=== PATIENT | male | born 1950 | race Caucasian/White ===

== ENCOUNTER 2017-01-22 15:44 | Emergency (ER) | payer OTHER, MEDICARE ==
[~2017-01-22] VITALS: Ht 188 cm; Wt 127.0 kg
[2017-01-22 17:16] LABS: ABSOLUTE BASOPHIL COUNT 0 /CUMM (0.0-0.2); ABSOLUTE EOSINOPHIL COUNT 0.2 /CUMM (0.0-0.7); ABSOLUTE GRANULOCYTE CT 4.3 /CUMM (1.4-6.5); ABSOLUTE LYMPH COUNT 1.6 /CUMM (1.2-3.4); ABSOLUTE MONOCYTE COUNT 0.8 /CUMM (0.10-0.60); BASOPHIL % 0.4 % (0.0-2.0); EOSINOPHIL % 2.4 % (0-5); HEMATOCRIT 43.2 % (42-52); MEAN CORPUSCULAR HGB 31.5 PG (27.0-31.0); MEAN CORPUSCULAR VOLUME 92.7 FL (80.0-94.0); MEAN PLATELET VOLUME 8.3 FL (7.4-10.4); PLATELET COUNT 166 /CUMM (130-400); RBC DISTRIBUTION WIDTH 14.6 % (11.5-14.5); RED BLOOD CELL CT 4.66 /CUMM (4.70-6.10)
[2017-01-22 17:22] LABS: PT 10.5 SEC (9.4-12.5)
--- NOTE | 2017-01-22 17:46 | ED SYNCOPE COMPLAINT ---
History of Present Illness General Chief Complaint: Syncope and Near-Syncope Stated Complaint: ?SYNCOPE Source: patient Exam Limitations: no limitations Vital Signs & Intake/Output Vital Signs & Intake/Output Vital Signs Date Time Temp Pulse Resp B/P B/P Pulse O2 O2 Flow FiO2 Mean Ox Delivery Rate 01/22 1829 97.5 80 18 166/91 95 01/22 1827 98 Room Air 01/22 1545 98.7 81 18 163/89 97 Room Air Allergies Coded Allergies: NO KNOWN ALLERGIES (08/06/12) Reconcile Medications Albuterol Sulfate (Ventolin Hfa) 90 MCG HFA.AER.AD 2 PUF INH Q4-6 PRN PRN SHORTNESS OF BREATH Azithromycin (Zithromax) 500 MG TABLET 1 TAB PO DAILY BRONCHITIS Benzonatate (Tessalon Perle) 100 MG CAPSULE 1 CAP PO TID PRN COUGH Codeine Phosphate/Guaifenesi (Cheratussin AC Syrup) 10 MG-100 MG/5 ML LIQUID 10 ML PO QPM PRN COUGH DO NOT OPERATE MOTOR VEHICLES WHEN TAKING THIS MEDICATION Fluticasone Propionate (Flonase Allergy Relief) 50 MCG/ACTUATION SPRAY.SUSP 2 SPRAY MARK DAILY PRN CONGESTION Methylprednisolone. (Medrol) 4 MG TAB.DS.PK 1 DP PO AD INFLAMMATION 6 on day 1 then reduce by one tablet daily until gone Triage Note: PT TO TRIAGE WITH C/O SYNCOPAL EPISODE AT HOME 30MIN [employer]. PT STOOD UP AND FELT DIZZY, FELL ON A FLOOR AND HIT HIS HEAD, PT UNSURE OF LOC. LAC TO RIGHT CHEEK NOTED. BLEEDIDNG CONTROLLED. PT TAKES ASPIRIN. VSS. PT TO [facility] FOR EKG. Triage Nurses Notes Reviewed? yes Timing: single episode today Precipitating Factors: lightheadedness Loss of Consciousness: dazed HPI: Patient is a 66-year-old male with past medical history of myocardial infarction and TIA currently on anticoagulation of Plavix who presents to emergency room stating that he has a four-day history of cough congestion and not feeling well which his has similar symptoms were today 2 hours prior to arrival patient was resting comfortably in a seated position stated up suddenly and had a significant coughing episode where he then became lightheaded and dazed where he had a presyncopal episode with and he struck the right side of his face to the bed however no loss of consciousness had occurred. Patient did suffer a scratch to the face and to the right elbow. Patient complains of mild headache. Denies any blurred vision neck pain back pain abdominal pain chest pain arm pain jaw pain nausea vomiting. Patient does state that yesterday he did note 2 ticks embedded in his skin one to the right axilla and the other to the right inner thigh where he presented to urgent care facility and had them completely removed and patient did prophylactically receive doxycycline. (BABAK BELCHER) Past History Travel History Traveled to [place] past 21 day No Medical History Any Pertinent Medical History? see below for history Cardiovascular: hypertension, myocardial infarction Tetanus Vaccine: 08/06/12 Surgical History Surgical History: non-contributory Psychosocial History What is your primary language Uzbek Tobacco Use: Never used Family History Hx Contributory? No (BABAK BELCHER) Review of Systems Review of Systems Constitutional: Reports: see HPI. Denies: chills, fever. EENTM: Reports: nasal congestion. Respiratory: Reports: see HPI, cough. Denies: short of breath. Cardiovascular: Reports: see HPI. Denies: chest pain. GI: Reports: no symptoms. Genitourinary: Reports: no symptoms. Musculoskeletal: Reports: no symptoms. Skin: Reports: see HPI. Neurological/Psychological: Reports: see HPI, headache. All Other Systems: Reviewed and Negative (BABAK BELCHER) Physical Exam Physical Exam General Appearance: no apparent distress, alert, comfortable Cranial Nerves: normal hearing, normal speech, PERRL Comments: Well-developed well-nourished person in no acute distress HEENT: Normal EENT exam, extraocular motion intact, no nystagmus. Pupils equally round and reactive to light and accommodation. Nose is atraumatic. External auditory canal and Tympanic membranes clear. Pharynx normal. No swelling or edema. Neck: Supple, no lymphadenopathy, normal range of motion without pain or tenderness Back: Nontender, no CVA tenderness. Cardiovascular: Regular rate and rhythms no murmurs rubs or gallops, normal JVP Respiratory: Chest nontender. No respiratory distress.breath sounds clear to auscultation bilaterally Abdomen: Soft, nontender nondistended, no appreciable organomegaly. Normal bowel sounds. No ascites Extremity: No edema, no calf tenderness to palpation, normal and equal pulses. Neuro: Alert oriented x3, motor sensory normal, cranial nerves II through XII grossly intact. Skin: No appreciable rash on exposed skin, skin is warm and dry. Psych: Mood and affect is normal, memory and judgment is normal. Face: Right-sided zygomatic region a 3 cm superficial excoriation margins are revised no active bleeding Diagram Chest, Abdomen, Back: 1) 2 cm excoriation noted no active bleeding Core Measures ACS in differential dx? Yes CVA/TIA Diagnosis: No Severe Sepsis Present: No Septic Shock Present: No (CASSIE BORREGO,BABAK) Progress Differential Diagnosis: AMI, aortic dissection, aortic valve, drug induced syncope, hyperventilation, orthostatic syncope, other valvular disease, pacemaker malfunction, pericardial tamponade, pulmonary embolus, seizure, sick sinus syndrome, subarachnoid hem., TIA/CVA, vasodepressor syncope, ventricular tach/fib, ICH, FX Plan of Care: Orders Procedure Date/time Status TROPONIN LEVEL 01/22 1644 Complete PROTHROMBIN TIME 01/22 1644 Complete MAGNESIUM 01/22 1644 Complete COMPREHENSIVE METABOLIC PANEL 01/22 1644 Complete CBC WITHOUT DIFFERENTIAL 01/22 1644 Complete EKG 01/22 1544 Active Laboratory Tests 01/22/17 1705: Anion Gap 11, Estimated GFR > 60, BUN/Creatinine Ratio 30.0 H, Glucose 101 H, Calcium 9.4, Magnesium 2.0, Total Bilirubin 0.5, AST 32, ALT 40, Alkaline Phosphatase 43, Troponin I < 0.01, Total Protein 6.9, Albumin 4.2, Globulin 2.7, Albumin/Globulin Ratio 1.6, PT 10.5, INR 1.00, CBC w Diff NO MAN DIFF REQ, RBC 4.66 L, MCV 92.7, MCH 31.5 H, RDW 14.6 H, MPV 8.3, Gran % 62.0, Lymphocytes % 23.1, Monocytes % 12.1 H, Eosinophils % 2.4, Basophils % 0.4, Absolute Granulocytes 4.3, Absolute Lymphocytes 1.6, Absolute Monocytes 0.8 H, Absolute Eosinophils 0.2, Absolute Basophils 0, PUBS MCHC 34.0 The right side of patient's face at this time on exam there is no concern for emergent suturing in which the wound was cleaned with sterile water bacitracin was applied Patient had unremarkable CT scan unremarkable chest x-ray and unremarkable blood work. She will be treated for concerns of bronchitis and most likely had a vasovagal response due to significant cough Patient upon discharge looks well no apparent distress patient ambulated with no symptoms. (BABAK BELCHER) Diagnostic Imaging: Viewed by Me: Radiology Read, CT Scan. Radiology Impression: no acute abnormality, no fracture Initial ED EKG: normal p-waves, normal QRS complex, normal sinus rhythm, 77 BPM Comments: PATIENT: JAYNE MARTE PRESENT AGE: 66 PATIENT ACCOUNT NO: [id number] : 52 LOCATION: ER ORDERING PHYSICIAN: BABAK BORREGO SERVICE DATE: 01/22/17 EXAM TYPE: RAD - XRY-CHEST XRAY, PA AND LATERAL EXAMINATION: CHEST 2 VIEWS CLINICAL INFORMATION: Cough. COMPARISON: None. TECHNIQUE: PA and lateral views of the chest were obtained. FINDINGS: The cardiac silhouette is not enlarged. The mediastinal and hilar contours are unremarkable. There are neither pleural effusions nor pneumothoraces. There are no consolidations. The osseous structures are unremarkable. IMPRESSION: No evidence for acute disease. DICTATED BY: MARBIN GARCIA MD DATE/TIME DICTATED:01/22/171806 PATIENT: JAYNE MARTE PRESENT AGE: 66 PATIENT ACCOUNT NO: [id number] : 52 LOCATION: ER ORDERING PHYSICIAN: BABAK BORREGO SERVICE DATE: 01/22/17 EXAM TYPE: CAT - CT HEAD WO IV CONTRAST EXAMINATION: CT HEAD WITHOUT CONTRAST CLINICAL INFORMATION: Trauma to head, face. On Plavix. COMPARISON: None. TECHNIQUE: Contiguous helical images of the brain were obtained without IV contrast. Multiplanar reconstructions were performed. DLP: 601 mGy-cm. FINDINGS: There are no pathologic extra-axial fluid collections. The lateral, third, fourth ventricles are nondilated and concordant with the appearance of the sulci. There is no evidence for acute intraparenchymal hemorrhage or infarct. There is neither mass nor mass effect. There is no shift of midline structures. The paranasal sinuses and mastoid air cells are clear. There are no osseous lesions. IMPRESSION: No evidence for acute intracranial injury. (BABAK BELCHER) Departure Departure Disposition: HOME OR SELF CARE Condition: Stable Clinical Impression Primary Impression: Bronchitis Secondary Impressions: Dizziness, Minor head trauma, Vasovagal near-syncope Referrals: ALEXANDER PERRY MD (PCP/Family) Additional Instructions: As discussed begin the azithromycin as directed for the full course, begin the prescription of Cheratussin and Tessalon Perles for cough and Medrol Dosepak for inflammation and Ventolin for shortness of breath and Flonase for congestion. Prescriptions waiting at [facility] pharmacy. If no better in 2 days follow-up with her primary care doctor. If symptoms worsen return to emergency room. Apply bacitracin to the face once a day for the following 4 days. If you note signs of infection redness, pain, swelling, discharge return to emergency room. Departure Forms: Customer Survey General Discharge Information Prescriptions: Current Visit Scripts Azithromycin (Zithromax) 1 TAB PO DAILY #5 TAB Benzonatate (Tessalon Perle) 1 CAP PO TID PRN COUGH #21 CAP Codeine Phosphate/Guaifenesi (Cheratussin AC Syrup) 10 ML PO QPM PRN COUGH #100 ML DO NOT OPERATE MOTOR VEHICLES WHEN TAKING THIS MEDICATION Albuterol Sulfate (Ventolin Hfa) 2 PUF INH Q4-6 PRN PRN SHORTNESS OF BREATH #1 INHAL Methylprednisolone. (Medrol) 1 DP PO AD #1 DP 6 on day 1 then reduce by one tablet daily until gone Fluticasone Propionate (Flonase Allergy Relief) 2 SPRAY MARK DAILY PRN CONGESTION #1 BOT (BABAK BELCHER) PA/[employer] CONSULTANT AND DESIGNER Co-Sign Statement Statement: ED Attending supervision documentation- [] I saw and evaluated the patient. I have also reviewed all the pertinent lab results and diagnostic results. I agree with the findings and the plan of care as documented in the PA's/[employer] ENER[employer] CONSULTANT AND DESIGNER's documentation. [X] I have reviewed the ED Record and agree with the PA's/[employer]ER[employer] CONSULTANT AND DESIGNER's documentation. [] Additions or exceptions (if any) to the PAs/[employer]AR ENERGY CONSULTANT AND DESIGNER's note and plan are summarized below: [] (DOMINIQUE VILLALOBOS,DEMIAN)
--- NOTE | 2017-01-22 18:11 | RADIOLOGY REPORT ---
EXAMINATION: CHEST 2 VIEWS CLINICAL INFORMATION: Cough. COMPARISON: None. TECHNIQUE: PA and lateral views of the chest were obtained. FINDINGS: The cardiac silhouette is not enlarged. The mediastinal and hilar contours are unremarkable. There are neither pleural effusions nor pneumothoraces. There are no consolidations. The osseous structures are unremarkable. IMPRESSION: No evidence for acute disease.
--- NOTE | 2017-01-22 18:20 | CT SCAN REPORT ---
EXAMINATION: CT HEAD WITHOUT CONTRAST CLINICAL INFORMATION: Trauma to head, face. On Plavix. COMPARISON: None. TECHNIQUE: Contiguous helical images of the brain were obtained without IV contrast. Multiplanar reconstructions were performed. DLP: 601 mGy-cm. FINDINGS: There are no pathologic extra-axial fluid collections. The lateral, third, fourth ventricles are nondilated and concordant with the appearance of the sulci. There is no evidence for acute intraparenchymal hemorrhage or infarct. There is neither mass nor mass effect. There is no shift of midline structures. The paranasal sinuses and mastoid air cells are clear. There are no osseous lesions. IMPRESSION: No evidence for acute intracranial injury.
[2017-01-22 18:29] VITALS: BP 166/91
[2017-01-22] MEDS ORDERED: MEDROL4 M2 PO (18:46)
[2017-01-22] MEDS ORDERED: VENTOLIN HFA18 GM INH (18:46)
[2017-01-22] MEDS ORDERED: TESSALON PERLE100 M1 PO (18:46)
[2017-01-22] MEDS ORDERED: ZITHROMAX500 M2 PO (18:46)
[2017-01-22] MEDS ORDERED: CHERATUSSIN AC118 M1 PO (18:46)
[2017-01-22] MEDS ORDERED: FLONASE ALLERG9.9 ML NAS (18:49)
== END 2017-01-22 19:12 ==
LOC: ERH 15:44
PROVIDERS: Physician Assistant Medical
DX: J40 Bronchitis, not specified as acute or chronic (principal); S09.90XA Unspecified injury of head, initial encounter; R55 Syncope and collapse; W19.XXXA Unspecified fall, initial encounter; Y92.9 Unspecified place or not applicable; Y93.9 Activity, unspecified
CPT/HCPCS: 90471; 90714; 93005; 93010